=== PATIENT | male | born 1975 | race Caucasian/White ===

== ENCOUNTER → 2017-09-21 | Outpatient (CLI) | payer OTHER | END | disposition home or self-care (01) | LOC: KCIC 14:34 | DX: M25.551 Pain in right hip (principal) | CPT/HCPCS: 73502 ==

== ENCOUNTER → 2020-08-13 | Outpatient (CLI) | payer OTHER ==
--- NOTE | 2020-08-13 11:07 | KCIC ---
EXAM: CT coronary artery calcium screening; radiologist over read. HISTORY: Cardiac or screening. TECHNIQUE: Computed tomographic images of the chest were obtained without contrast. Multiplanar refor matting was performed. *One or more of the following individualized dose reduction techniques were utilized for this examina tion: 1. Automated exposure control. 2. Adjustment of the mA and/or kV according to patient size. 3. Use of iterative reconstruction technique. COMPARISON: None. FINDINGS: The heart is normal in size. The aorta is normal in caliber. There is no lymphadenopathy. T here is gynecomastia. There is no infiltrate, pleural effusion or pneumothorax. There is no suspiciou s pulmonary nodule. The upper abdomen is unremarkable. There is no suspicious osseous lesion. Coronary artery calcium score: 0. IMPRESSION: 1. Coronary artery calcium score of 0. 2. No significant incidental thoracic finding. Electronically signed by: Alicia Powell MD (08/13/2020 11:04 AM) [id number]
== END ==
LOC: KCIC CT 10:00
PROVIDERS: ATTEND Nurse Practitioner Gerontology
DX: Z13.6 Encounter for screening for cardiovascular disorders (principal); R07.9 Chest pain, unspecified; Z86.79 Personal history of other diseases of the circulatory system
CPT/HCPCS: 75571

== ENCOUNTER → 2020-09-10 | Outpatient (CLI) | payer OTHER ==
--- NOTE | 2020-09-11 16:07 | CARD ---
MR#: [id number] Date of Study: 09/10/2020 Ordering Physician: YONATHAN GORDON, Referring Physician: Rubens PATTON: Maria Fernanda Albarran APRIL APPROVED REPORT INDICATION Chest Pain Reason : Patient complained of pain PROCEDURE The patient underwent an Exercise Stress Test using the Ronald Protocol. Blood pressure, heart rate, a nd EKG were monitored. An Echocardiogram was performed by parking technician in four stages in quad fashion. At peak stress four se lected images were obtained and placed side by side with resting images for comparison. STRESS ECHO FINDINGS The resting Echocardiogram showed normal left ventricular systolic contractility with an estimated Ej ection Fraction of about 55 %. The Resting Echocardiogram showed normal augmentation of myocardial wall segments using a 16 segment model. The Stress Echocardiogram showed normal augmentation of myocardial wall segments using a 16 segment m jorge. The Stress Echocardiogram left ventricular systolic contractility has an estimated Ejection Fraction of about 65%. Test Type: Exercise Stress Nurse/Tech: Ana Rosa Stafford R.N. Test Indications: chest pain Cardiac History and Allergies: none Medications: none Resting ECG: sr Resting Heart Rate: 80 bpm Resting Blood Pressure: 112/77mmHg Pretest Chest Pain: No chest pain Nurse/Tech Notes lungs cta Stress Symptoms No chest pain or symptoms. POST EXERCISE Reason for Termination: Reached target heart rate Target HR: Yes Max HR: 172 bpm 99% of Maximum Predicted HR: 173 bpm Exercise duration: 13:14 min:sec, 5 Stage Exercise capacity: 14.8METs Max Blood Pressure: 180/70mmHg Blood Pressure response to exercise: Normal blood pressure response during stress. Heart Rate response to exercise: normal Chest Pain: No. Arrhythmia: No. INTERPRETATION Stress EKG Conclusion: The resting EKG showed a sinus rhythm with mild nonspecific ST-T wave changes. The stress EKG showed no significant changes from baseline. No EKG evidence of stress-induced ischemia. Preliminary Notification Critical Value: No <Conclusion> Excellent exercise tolerance with the patient walking for 13 minutes and 14 seconds on a Ronald protoc ol. No EKG evidence of stress-induced ischemia. Normal LV systolic function at rest. Normal LV response to exertion with no regional wall motion abnormalities. Low risk treadmill stress echo. Signed by : Gwyn Aleman MD Electronically Approved : 09/11/2020 16:06:46
== END ==
LOC: ECHO 13:11
PROVIDERS: ATTEND Internal Medicine Cardiovascular Disease
DX: R07.9 Chest pain, unspecified (principal)
CPT/HCPCS: 93017; 93350

== ENCOUNTER → 2021-10-08 | Outpatient (CLI) | payer OTHER ==
--- NOTE | 2021-10-08 08:18 | RAD ---
EXAM: Abdomen sonogram. HISTORY: Pain. TECHNIQUE: Sonographic imaging of the abdomen was performed. COMPARISON: None. FINDINGS: The liver is normal in size. No focal hepatic lesion is seen. The gallbladder is unremarkab le. The common bile duct is normal in caliber. The kidneys are normal in size. There is no hydronephr osis or solid or cystic renal lesion. The pancreas, spleen, aorta and inferior vena cava are unremark able.. IMPRESSION: Unremarkable abdomen sonogram. Electronically signed by: Alicia Powell MD (10/08/2021 8:16 AM) [id number]
== END ==
LOC: US 07:26
PROVIDERS: ATTEND Physician Assistant
DX: R10.9 Unspecified abdominal pain (principal)
CPT/HCPCS: 76700